=== PATIENT | female | born 1995 | race Two or more races ===

== ENCOUNTER 2022-12-05 01:59 | Outpatient (CLI) | payer OTHER ==
[2022-12-05] MEDS ORDERED: PRENATAL TABLE1 EAC1 PO (02:58)
[2022-12-05 03:02] LABS: PH,URINE 7.5 (5.0-8.0); URINE APPEARANCE Turbid; URINE BILIRRUBIN Negative (NEGATIVE); URINE BLOOD Negative; URINE COLOR Yellow; URINE GLUCOSE Negative (NEGATIVE); URINE LEUKOCYTE Large; URINE NITRATE Negative; URINE PROTEIN Trace (NEGATIVE); URINE UROBILINOGEN 0.2 E.U./dl
[2022-12-05 03:03] LABS: HEMATOCRIT 30.2 % (36.0-45.00); HEMOGLOBIN 10.3 g/dL (12.0-15.00); MEAN CORPUSCULAR HEMOGLOBIN 29.9 pg (27.00-32.0); PLATELET COUNT 271 K/uL (150-450); RED BLOOD COUNT 3.43 M/uL (4.00-6.00); RED CELL DISTRIBUTION WIDTH 12.5 % (11.5-14.5)
[2022-12-05 03:05] LABS: URINE BACTERIA 5702.5 uL (0.0-1933); URINE EPITHELIAL CELLS 172.8 uL (0.0-38.8); URINE RBC 19.1 uL (0.0-20.8); URINE WBC 43.5 uL (0.0-23.2)
[2022-12-05 03:41] LABS: URINE CRYSTALS MANY /HPF
[2022-12-05] MEDS ORDERED: CEFUROXIME500 MG PO (12:18)
== END 2022-12-05 13:22 | disposition home or self-care (01) ==
LOC: OBS/DEL 01:59
PROVIDERS: ATTEND Specialist
DX: O23.32 Infections of other parts of urinary tract in pregnancy, second trimester (principal); N39.0 Urinary tract infection, site not specified; O23.02 Infections of kidney in pregnancy, second trimester; N13.6 Pyonephrosis; Z3A.27 27 weeks gestation of pregnancy

== ENCOUNTER 2023-01-09 17:52 | Outpatient (CLI) | payer OTHER ==
[~2023-01-09 17:52] MED LIST: CEFUROXIME500 MG PO; PRENATAL TABLE1 EAC1 PO
[2023-01-09 18:25] LABS: URINE APPEARANCE Cloudy; URINE BILIRRUBIN Negative (NEGATIVE); URINE BLOOD Negative; URINE COLOR Yellow; URINE GLUCOSE Negative (NEGATIVE); URINE LEUKOCYTE Moderate; URINE NITRATE Negative; URINE PROTEIN 30 (NEGATIVE)
[2023-01-09 18:29] LABS: URINE RBC 120.4 uL (0.0-20.8); URINE WBC 439.3 uL (0.0-23.2)
[2023-01-09 18:31] LABS: HEMATOCRIT 30.9 % (36.0-45.00); HEMOGLOBIN 10.3 g/dL (12.0-15.00); MEAN CELL VOLUME 86.1 fL (80.00-100.00); MEAN CORPUSCULAR HEMOGLOBIN 28.7 pg (27.00-32.0); MEAN CORPUSCULAR HGB CONC 33.3 g/dl (32.0-36.0); PLATELET COUNT 239 K/uL (150-450); RED BLOOD COUNT 3.59 M/uL (4.00-6.00); RED CELL DISTRIBUTION WIDTH 12.6 % (11.5-14.5)
[2023-01-09 18:44] LABS: CALCIUM 8.4 mg/dL (8.5-10.1); CREATININE SERUM 0.46 mg/dL (0.55-1.02); GFR 161.75; POTASSIUM 3.9 mEq/L (3.5-5.1)
[2023-01-09 18:54] LABS: URINE BACTERIA > 9821.5 uL (0.0-1933); URINE EPITHELIAL CELLS > 201.7 uL (0.0-38.8)
[2023-01-09 19:02] LABS: URINE BACTERIA MANY; URINE MUCUS HEAVY
== END 2023-01-10 10:44 | disposition home or self-care (01) ==
LOC: OBS/DEL 17:52
PROVIDERS: Obstetrics & Gynecology; ATTEND Specialist
DX: O26.893 Other specified pregnancy related conditions, third trimester (principal); J10.1 Influenza due to other identified influenza virus with other respiratory manifestations; B96.0 Mycoplasma pneumoniae [M. pneumoniae] as the cause of diseases classified elsewhere; Z3A.33 33 weeks gestation of pregnancy; Z20.822 Contact with and (suspected) exposure to COVID-19

== ENCOUNTER 2023-02-15 10:00 | Inpatient (IN) | payer OTHER ==
[~2023-02-15] VITALS: Ht 149.9 cm; Wt 68.9 kg
[2023-03-07] MEDS ORDERED: PRENATAL TABLE1 EAC1 PO (06:03)
[2023-03-07 06:56] LABS: HEMATOCRIT 29.2 % (36.0-45.00); HEMOGLOBIN 9.7 g/dL (12.0-15.00); MEAN CELL VOLUME 82.2 fL (80.00-100.00); MEAN CORPUSCULAR HEMOGLOBIN 27.3 pg (27.00-32.0); MEAN CORPUSCULAR HGB CONC 33.2 g/dl (32.0-36.0); PLATELET COUNT 353 K/uL (150-450); RED BLOOD COUNT 3.55 M/uL (4.00-6.00); RED CELL DISTRIBUTION WIDTH 13.2 % (11.5-14.5)
[2023-03-07 07:02] LABS: PH,URINE 6.5 (5.0-8.0); URINE APPEARANCE Clear; URINE BILIRRUBIN Negative (NEGATIVE); URINE BLOOD Negative; URINE COLOR Yellow; URINE GLUCOSE Negative (NEGATIVE); URINE LEUKOCYTE Trace; URINE NITRATE Negative; URINE PROTEIN Negative (NEGATIVE); URINE UROBILINOGEN 0.2 E.U./dl
[2023-03-07 07:06] LABS: URINE BACTERIA 566.9 uL (0.0-1933); URINE EPITHELIAL CELLS 16.3 uL (0.0-38.8); URINE RBC 3.7 uL (0.0-20.8); URINE WBC 9.5 uL (0.0-23.2)
[2023-03-07 07:10] LABS: ALBUMIN 2.9 gm/dL (3.4-5.0); BILIRUBIN TOTAL 0.4 mg/dL (0.3-1.2); CALCIUM 8.8 mg/dL (8.5-10.1); CREATININE SERUM 0.59 mg/dL (0.55-1.02); GFR 120.5; GLOBULINA 3.2 G/DL (2.4-3.5); INR < 0.93; PARTIAL THROMBOPLASTIN TIME 23.8 SECONDS (22.0-34.0); POTASSIUM 3.67 mEq/L (3.5-5.1); PROTHROMBIN TIME 9.8 SECONDS (9.0-11.5); TOTAL PROTEIN 6.1 gm/dL (6.4-8.2)
[2023-03-08 02:27] LABS: HEMATOCRIT 29.5 % (36.0-45.00); MEAN CELL VOLUME 82.6 fL (80.00-100.00); MEAN CORPUSCULAR HGB CONC 33.5 g/dl (32.0-36.0); PLATELET COUNT 323 K/uL (150-450); RED BLOOD COUNT 3.57 M/uL (4.00-6.00); RED CELL DISTRIBUTION WIDTH 13.2 % (11.5-14.5)
[2023-03-08 02:28] LABS: HEMOGLOBIN 9.9 g/dL (12.0-15.00); MEAN CORPUSCULAR HEMOGLOBIN 27.7 pg (27.00-32.0)
== END 2023-03-09 14:17 | disposition home or self-care (01) | DRG 807 ==
LOC: LDR 03-07 05:15 → OB/GYN 03-07 10:00
PROVIDERS: ADMIT Specialist; ATTEND Specialist
PROC: 10E0XZZ Delivery of Products of Conception, External Approach (ICD-10-PCS; principal; 2023-03-07)
PROC: 0HQ9XZZ Repair Perineum Skin, External Approach (ICD-10-PCS; 2023-03-07)
PROC: 3E033VJ Introduction of Other Hormone into Peripheral Vein, Percutaneous Approach (ICD-10-PCS; 2023-03-07)
PROC: 3E0P7VZ Introduction of Hormone into Female Reproductive, Via Natural or Artificial Opening (ICD-10-PCS; 2023-03-07)
PROC: 4A1HXCZ Monitoring of Products of Conception, Cardiac Rate, External Approach (ICD-10-PCS; 2023-03-07)
DX: O70.0 First degree perineal laceration during delivery (principal); Z37.0 Single live birth; Z3A.40 40 weeks gestation of pregnancy; Z20.822 Contact with and (suspected) exposure to COVID-19